=== PATIENT | female | born 1940 | race Caucasian/White ===

== ENCOUNTER → 2019-01-18 | Outpatient (CLI) | payer MEDICARE, BC | LOC: RAD 09:58 | DX: R55 Syncope and collapse (principal) ==

== ENCOUNTER → 2019-04-11 | Outpatient (CLI) | payer MEDICARE, BC | LOC: RAD 15:00 | DX: R51 Headache (principal); R42 Dizziness and giddiness; R11.10 Vomiting, unspecified; Z87.820 Personal history of traumatic brain injury; Z87.828 Personal history of other (healed) physical injury and trauma ==